=== PATIENT | male | born 1940 | race Caucasian/White ===

== ENCOUNTER → 2025-03-17 | Outpatient (CLI) | payer MEDICARE, OTHER, SELFPAY ==
[2025-03-17 15:53] LABS: Basophils # (Auto) 0.0 Thou/mm3 (0.0-0.2); Basophils % (Auto) 0 % (0-2.5); Eosinophils # (Auto) 0.1 Thou/mm3 (0.0-0.5); Eosinophils % (Auto) 1 % (0-10); Hematocrit 31.8 % (41.0-53.0); Hemoglobin 10.9 g/dL (13.5-16.0); Immature Granulocytes Auto 0.03 Thou/mm3 (0.00-0.00); Lymphocytes # (Auto) 1.2 Thou/mm3 (1.0-4.8); Lymphocytes % (Auto) 18 % (10-50); Mean Corpuscular HGB Conc 34.3 g/dl (31.0-37.0); Mean Corpuscular Hemoglobin 33.9 pg (25.0-35.0); Mean Corpuscular Volume 99 fL (80-100); Monocytes # (Auto) 0.6 Thou/mm3 (0.0-0.8); Monocytes % (Auto) 8 % (0-12); Neutrophils # (Auto) 5.0 Thou/mm3 (1.8-7.7); Neutrophils % (Auto) 72 % (37-80); Nucleated Red Blood Cell # 0.00 Thou/mm3 (0.00-0.00); Nucleated Red Blood Cell % 0 /100 WBC (0); Platelet Count 242 Thou/mm3 (140-440); RDW Standard Deviation 45.8 fL (35.1-43.9); Red Blood Count 3.22 Miln/mm3 (4.50-5.90); White Blood Count 6.9 Thou/mm3 (3.8-10.6)
[2025-03-17 16:09] LABS: Glucose Estimated Average 108 mg/dL (80-131); Hemoglobin A1C 5.4 % Hgb (4.8-6.0); Prostate Specific Antigen < 0.10 ng/mL (0-4.00)
[2025-03-17 16:10] LABS: Parathyroid Hormone Intact 67.3 pg/ml (18.5-88.0)
[2025-03-17 16:15] LABS: Vitamin B12 895 pg/mL (211-911); Vitamin D 25 Hydroxy Total 60.0 ng/mL (7.3-40.2)
[2025-03-17 16:28] LABS: Alanine Aminotransferase 10 U/L (10-49); Albumin, Serum 3.9 gm/dL (3.4-4.8); Albumin/Globulin Ratio 1.0 (1.2-2.2); Alkaline Phosphatase 78 U/L (46-116); Anion Gap 5 (7-16); Aspartate Amino Transferase 18 U/L (0-34); BUN/Creatinine Ratio 25 Ratio (12-20); Bilirubin,Total 0.3 mg/dL (0.3-1.2); Blood Urea Nitrogen 48 mg/dL (9-23); Calcium 8.5 mg/dL (8.3-10.6); Calcium (Corrected) 8.6 mg/dL (8.5-10.1); Carbon Dioxide 24.8 mMol/L (20.0-31.0); Cardiac Risk Estimate 3.6 RATIO (4.0-6.7); Chloride 112 mMol/L (98-107); Cholesterol 146 mg/dL (132-200); Creatinine (Component) 1.9 mg/dL (0.6-1.3); Globulin 3.9 gm/dL (2.3-3.5); Glucose 89 mg/dL (74-106); HDL Cholesterol 41 mg/dL (40-60); LDL Cholesterol,Calculated 86 mg/dL (0-130); Osmolality,Calculated 294 (275-295); Potassium 4.3 mMol/L (3.4-5.1); Sodium 142 mMol/L (136-145); Thyroid Stimulating Hormone 3.99 uIU/mL (0.55-4.78); Total Protein 7.8 gm/dL (5.7-8.2); Triglycerides 95 mg/dL (30-150); Uric Acid 7.0 mg/dL (3.7-9.2); eGFR 34 See Note
== END | disposition home or self-care (01) ==
LOC: COPL 13:46
PROVIDERS: PCP Internal Medicine; Referring Provider Internal Medicine; Visit Provider Internal Medicine
DX: I12.9 Hypertensive chronic kidney disease with stage 1 through stage 4 chronic kidney disease, or unspecified chronic kidney disease (principal); N18.30 Chronic kidney disease, stage 3 unspecified; E78.5 Hyperlipidemia, unspecified; D51.9 Vitamin B12 deficiency anemia, unspecified; E55.9 Vitamin D deficiency, unspecified; Z85.46 Personal history of malignant neoplasm of prostate
CPT/HCPCS: 36415; 80053; 80061; 81001; 82043; 82306; 82570; 82607; 83036; 83970; 84153; 84443; 84550; 85025

== ENCOUNTER 2025-04-08 10:58 | Emergency (ER) | payer OTHER, SELFPAY ==
[2025-04-08 10:59] VITALS: BMI 20.9
[2025-04-08 11:19] VITALS: BP 146/66; PULSE 94; RESP 18; TEMP 36.5; O2SAT 93
--- NOTE | 2025-04-08 11:26 | XR_ITS ---
Examination: CT cervical spine without contrast 2-D sagittal reconstructions 2-D coronal reconstructions 3-D reconstructions. Exam date and time: April 08, 2025, 1135 hours INDICATIONS: Ground-level fall today with injury of the neck, neck pain CTDI:vol (mGy) 14 DLP: (mGycm) 323 Technique: Multiple 2 mm axial sections of the cervical spine have been obtained. The coronal and sagittal reconstructions have been obtained. 3-D reconstructions have been obtained. Low dose protocols were performed. One or more of the following dose reduction techniques were used; automated exposure control, adjustment of the mA and/or KV according to patient size, use of iterative reconstruction technique. Findings: Axial sections demonstrate intact base of the skull. C1 exhibit satisfactory relationship to the odontoid. No acute cervical vertebral body fracture seen. Alignment posterior spinous processes satisfactory. Chronic wedging T3 Impression: No acute cervical fracture.
--- NOTE | 2025-04-08 11:26 | XR_ITS ---
Examination: Shoulder, right, 3 views Technique: Shoulder AP internal rotation, AP external rotation, Y view shoulder, 3 views Exam date and time : 2024, 1149 hours INDICATION: Patient fell today with injury to the right shoulder, right shoulder pain. FINDINGS: No shoulder fracture or dislocation Significant narrowing glenohumeral joint Severe osteopenia IMPRESSION: No acute fracture
--- NOTE | 2025-04-08 11:26 | XR_ITS ---
EXAMINATION: PA chest single view TECHNIQUE: Upright PA chest single view Date and time: April 08, 2025, 1145 hours INDICATIONS: Patient fell today with injury to the chest, chest pain FINDINGS: Normal heart size Accentuation of bronchovascular markings. No pneumothorax Clavicles ribs appear intact IMPRESSION: No pneumothorax pulmonary contusion or hemothorax
--- NOTE | 2025-04-08 11:26 | XR_ITS ---
Examination: Hand, right 3 views Technique: Hand AP, oblique, lateral 3 views Date and time of exam: April 08, 2025, 11:36 a.m. INDICATION: Patient fell today with injury to the hand, hand pain. FINDINGS: No acute fracture No dislocation No foreign body Small old bone density dorsal to the carpal bones CT IMPRESSION: No acute fracture
--- NOTE | 2025-04-08 11:26 | EKG_ITS ---
[facility] Test Date: 2025-04-08 Pat Name: SOFIYA HERRON Department: Room: - Gender: Male Supervisor [employer] Department: : 1940 Requested By: Otoniel Rees Order Number: [id number] Reading MD: Otoniel Rees Measurements Intervals [place] Rate: 79 P: 51 PA: 204 QRS: 75 QRSD: 96 T: -8 QT: 354 QTc: 407 Interpretive Statements SINUS RHYTHM WITH OCCASIONAL VENTRICULAR PREMATURE COMPLEXES MODERATE ST DEPRESSION [0.05+ mV ST DEPRESSION] ABNORMAL QRS-T ANGLE [QRS-T AXIS DIFFERENCE > 60] No previous ECG available for comparison /store/S0/[id number].pdf
--- NOTE | 2025-04-08 11:26 | XR_ITS ---
Examination: Wrist, right 3 views Technique: Wrist AP, oblique, lateral 3 views Date and time of exam: 2024, 1136 hours INDICATIONS: Patient fell today with injury to the wrist, wrist pain. FINDINGS: Prominent osteopenia No acute fracture Small old bone density dorsal to the carpal bones IMPRESSION: No acute fracture
--- NOTE | 2025-04-08 11:26 | XR_ITS ---
Examination: CT brain head without contrast. 2-D sagittal coronal reconstructions Date and time of exam: April 08, 2025, 1143 hours INDICATIONS: Ground-level fall today with injury of the head, head pain CTDI: vol (mGy): 48.4 DLP: (mGycm): 948 Technique: Multiple CT axial sections of the brain have been obtained, 5 mm slice thickness. Contrast has not been administered. 2-D sagittal, coronal reconstructions have been obtained Low dose protocols were performed. One or more of the following dose reduction techniques were used; automated exposure control, adjustment of the mA and/or KV according to patient size, use of iterative reconstruction technique. Findings: No significant ventricular enlargement. Calcified mass right sphenoid ridge, 11 x 10 x 12 mm, axial image 27, coronal image 17 Intra-axial or extra-axial hemorrhage density is not seen. No mass effect or midline shift Basal cisterns are not remarkable. Fourth ventricle is midline. Cranial vault intact. 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
--- NOTE | 2025-04-08 11:27 | EDRME_ITS ---
Rapid Medical Screening Exam [facility] Arrival date/time: 04/08/25 10:58 84-year-old male with a history of COPD presents to the emergency room with a chief complaint of tenderness to his shoulder right wrist and right hand after a ground-level fall that occurred yesterday. Patient states he felt dizzy and lightheaded and fell to the ground I have greeted and performed a focused initial assessment of this patient. A comprehensive ED assessment and evaluation of the patient, analysis of all test results, and completion of the medical decision making process will be conducted by additional ED providers. Chief Complaint: Fall Time Seen by Provider: 04/08/25 11:11 Vital signs: Vital Signs Temperature 97.7 F 04/08/25 11:19 Pulse Rate 94 04/08/25 11:19 Respiratory Rate 18 04/08/25 11:19 Blood Pressure 146/66 H 04/08/25 11:19 Pulse Oximetry (%) 93 L 04/08/25 11:19 Oxygen Delivery Method Nasal Cannula 04/08/25 11:19 Oxygen Flow Rate 3 04/08/25 11:19 Vital signs reviewed by provider: Yes Exam: GCS of 15 alert and oriented x 3, hard of hearing Clear bilateral lung sounds Strong and regular rhythm S1 and S2 Clinical Impression: Anemia/orthostatic hypotension
[2025-04-08 13:28] LABS: Basophils # (Auto) 0.0 Thou/mm3 (0.0-0.2); Basophils % (Auto) 0 % (0-2.5); Eosinophils # (Auto) 0.0 Thou/mm3 (0.0-0.5); Eosinophils % (Auto) 0 % (0-10); Hematocrit 30.8 % (41.0-53.0); Hemoglobin 10.7 g/dL (13.5-16.0); Immature Granulocytes Auto 0.04 Thou/mm3 (0.00-0.00); Lymphocytes # (Auto) 0.8 Thou/mm3 (1.0-4.8); Lymphocytes % (Auto) 8 % (10-50); Mean Corpuscular HGB Conc 34.7 g/dl (31.0-37.0); Mean Corpuscular Hemoglobin 34.6 pg (25.0-35.0); Mean Corpuscular Volume 100 fL (80-100); Monocytes # (Auto) 0.7 Thou/mm3 (0.0-0.8); Monocytes % (Auto) 7 % (0-12); Neutrophils # (Auto) 8.1 Thou/mm3 (1.8-7.7); Neutrophils % (Auto) 84 % (37-80); Nucleated Red Blood Cell # 0.00 Thou/mm3 (0.00-0.00); Nucleated Red Blood Cell % 0 /100 WBC (0); Platelet Count 238 Thou/mm3 (140-440); RDW Standard Deviation 46.5 fL (35.1-43.9); Red Blood Count 3.09 Miln/mm3 (4.50-5.90); White Blood Count 9.7 Thou/mm3 (3.8-10.6)
[2025-04-08 13:44] LABS: INR 1.0 (0.9-1.3); Partial Thromboplastin Time 25.8 Seconds (22.0-36.0); Prothrombin Time 10.9 Seconds (9.0-12.2)
[2025-04-08 13:51] LABS: Alanine Aminotransferase 11 U/L (10-49); Albumin, Serum 4.0 gm/dL (3.4-4.8); Albumin/Globulin Ratio 0.9 (1.2-2.2); Alkaline Phosphatase 81 U/L (46-116); Anion Gap 6 (7-16); Aspartate Amino Transferase 20 U/L (0-34); BUN/Creatinine Ratio 24 Ratio (12-20); Bilirubin,Total 0.4 mg/dL (0.3-1.2); Blood Urea Nitrogen 41 mg/dL (9-23); Calcium 9.0 mg/dL (8.3-10.6); Calcium (Corrected) 9.0 mg/dL (8.5-10.1); Carbon Dioxide 23.0 mMol/L (20.0-31.0); Chloride 111 mMol/L (98-107); Creatinine (Component) 1.7 mg/dL (0.6-1.3); Estimated Creatinine Clearance 26.5 mL/min (>60); Free T4 (Free Thyroxine) 1.01 ng/dL (0.89-1.76); Globulin 4.6 gm/dL (2.3-3.5); Glucose 100 mg/dL (74-106); Magnesium 1.9 mg/dL (1.6-2.6); Osmolality,Calculated 289 (275-295); Potassium 4.3 mMol/L (3.4-5.1); Sodium 140 mMol/L (136-145); Thyroid Stimulating Hormone 3.87 uIU/mL (0.55-4.78); Total Protein 8.6 gm/dL (5.7-8.2); Troponin I < 0.020 ng/mL (0.0-0.045); eGFR 39 See Note
--- NOTE | 2025-04-08 14:00 | EDNOTE_ITS ---
ED General RME/HPI General Chief complaint: Fall Stated complaint: FALL S/P DIZZINESS; C/O R ARM PAIN THROUGHOUT Time Seen by Provider: 04/08/25 11:11 Arrival date/time: 04/08/25 10:58 CC: Right shoulder elbow and wrist as well as index finger pain HPI patient fell last night, after losing balance. The patient denies loss of consciousness or altered level of consciousness. No OTC medicines taken. Pain is somewhat decreased but overall unchanged since the fall yesterday. Patient is not on blood thinners RME / HPI RME / HPI narrative: 04/08/25 10:58 84-year-old male with a history of COPD presents to the emergency room with a chief complaint of tenderness to his shoulder right wrist and right hand after a ground-level fall that occurred yesterday. Patient states he felt dizzy and lightheaded and fell to the ground I have greeted and performed a focused initial assessment of this patient. A comprehensive ED assessment and evaluation of the patient, analysis of all test results, and completion of the medical decision making process will be conducted by additional ED providers. Exam: GCS of 15 alert and oriented x 3, hard of hearing Clear bilateral lung sounds Strong and regular rhythm S1 and S2 Impression: Anemia/orthostatic hypotension Related Data Allergies Allergy/AdvReac Type Severity Reaction Status Date / Time No Known Allergies Allergy Verified 04/08/25 11:03 Review of Systems Review of Systems Narrative Review of Systems: GEN: No fever, no chills, no weight loss EYES: No discharge, no visual changes, no pain HEENT: No ear pain, no congestion, no sore throat PULM: No shortness of breath, no cough, no congestion CV: No chest pain, no dyspnea on exertion, no palpitations GI: No nausea, no vomiting, no diarrhea, no pain, no constipation : No frequency, no urgency, no dysuria MUSC/SKEL: No joint pain, no back pain SKIN: No rash PSYCH: No hallucinations, no depression HEME/LYMPH: No easy bleeding or bruising tendencies NEURO: No weakness, no headache ED Exam Narrative Physical exam: [General: Thin, appears not in any acute distress Head normocephalic HEENT: Within acceptable limits Neck is supple nontender Chest equal chest rise nontender to palpation Respiratory: Clear to auscultation no wheezes crackles or rubs CV: Rate rhythm is regular no murmurs rubs or clicks Abdomen is soft nontender no masses positive bowel sounds all 4 quadrants Back: No CVA tenderness no spinous process tenderness from cervical spine thoracic and lumbar spine Skin: Intact no petechiae rash induration ulceration or crepitus Extremities: Decreased range of motion of the right arm secondary to pain in the shoulder and elbow but does have range of motion both passive and active. There is mild edema to the index finger of the right hand but full range of motion with a cap refill less than 2 seconds. Moving all other extremities poorly against resistance cap refill less than 2 seconds neurosensory intact. Neuro: Awake alert oriented x2, person and place, Glascow coma 15 no focal deficits] Course Quality Measures none Orders Category Date Time Status EKG (ED ONLY) *Do not use* NOW Care 04/08/25 11:[address] cervical spine wo con Stat Exams 04/08/25 11:[address] head/brain wo con Stat Exams 04/08/25 11:26 Completed EKG (ED Only) Stat Exams 04/08/25 11:26 Draft XR chest 1V portable Stat Exams 04/08/25 11:26 Completed XR hand comp RT min 3V Stat Exams 04/08/25 11:26 Completed XR shoulder RT min 2V Stat Exams 04/08/25 11:26 Completed XR wrist comp RT min 3V Stat Exams 04/08/25 11:26 Completed B-Type Natriuretic Peptide Stat Lab 04/08/25 13:12 Received CBC Stat Lab 04/08/25 13:12 Completed Comprehensive Metabolic Panel Stat Lab 04/08/25 13:12 Completed Drug Screen,Urine Stat Lab 04/08/25 11:26 Ordered Free T4 (Free Thyroxine) Stat Lab 04/08/25 13:12 Completed Magnesium Stat Lab 04/08/25 13:12 Completed Partial Thromboplastin Time Stat Lab 04/08/25 13:12 Completed Prothrombin Time with INR Stat Lab 04/08/25 13:12 Completed TSH [Thyroid Stimulating Hormone] Stat Lab 04/08/25 13:12 Completed Troponin I Stat Lab 04/08/25 13:12 Completed Type and Screen Stat Lab 04/08/25 13:12 Results Urinalysis, C/S if Indicated Stat Lab 04/08/25 11:26 Ordered Vital Signs Vital signs: Vital Signs Temperature 97.7 F 04/08/25 11:19 Pulse Rate 94 04/08/25 11:19 Respiratory Rate 18 04/08/25 11:19 Blood Pressure 146/66 H 04/08/25 11:19 Pulse Oximetry (%) 93 L 04/08/25 11:19 Oxygen Delivery Method Nasal Cannula 04/08/25 11:19 Oxygen Flow Rate 3 04/08/25 11:19 Discharge Plan Plan Patient Disposition: HOME (Self Care) Patient condition on transfer: Stable Prescriptions/Referrals Referrals: Nevaeh Bates MD [Primary Care Provider, Nephrology] - In 1 week Problem List Clinical Impression: Fall, Contusion of right shoulder, Arm contusion, Contusion of index finger Patient/Caregiver Discharge Instructions Education Materials: Bruises (Contusions) Additional Instructions: Tylenol for temporary pain relief ice or heat as necessary for soreness. Be very careful with ambulating make sure he uses his walker all the time. Follow- up with your primary care doctor if there is a worsening of symptoms return the emergency room medially for further evaluation. Print Language: Georgian Stand Alone Forms: [email or web address] Info., Work/School Release, Patient Portal Info Letter PA/[place] Supervising Physician PA/[place] Supervising Physician: Timbo Fontenot ENP [facility] Clinical Information Provided by: patient and family Medical Records reviewed [facility] Meds/Rx considered, not ordered None Labs/Rad/Tests considered, not ordered None Chronic Illness/Social Conditions which may negatively complicate care or outcome(s)-explain: None or not appl icable Labs Labs: interpreted by ca Lab(s) Interpretation(s): CBC shows no leukocytosis H&H of 10.7 and 30.8 respectively platelets of 238. Coags within acceptable limits CMP shows a BUN of 41 creatinine 1.7 note there are no old laboratory findings to compare to No other electrolyte imbalances renal impairment transaminitis or T. bili elevation. Troponin and BNP within acceptable limits. TSH and free T4 within acceptable limits Imaging Imaging Interpretation(s): Right wrist shoulder and hand x-ray negative. Chest x-ray is unremarkable. CT of the head is negative. CT cervical spine is negative. Medication Administration(s) none Diagnosis Differential Diagnosis ED Complaint MDM: Closed injury neck fracture shoulder fracture
[2025-04-08 14:20] LABS: B-Type Natriuretic Peptide 84 pg/mL (0-100)
== END 2025-04-08 14:20 | disposition home or self-care (01) ==
PROVIDERS: Nurse Practitioner Family; Emergency Provider Family Medicine; PCP Internal Medicine
DX: S40.011A Contusion of right shoulder, initial encounter (principal); S60.211A Contusion of right wrist, initial encounter; S60.021A Contusion of right index finger without damage to nail, initial encounter; S19.9XXA Unspecified injury of neck, initial encounter; S09.90XA Unspecified injury of head, initial encounter; S29.9XXA Unspecified injury of thorax, initial encounter; W01.0XXA Fall on same level from slipping, tripping and stumbling without subsequent striking against object, initial encounter
CPT/HCPCS: 36415; 70450; 71045; 72125; 73030; 73110; 73130; 80053; 80307; 81001; 83735; 83880; 84439; 84443; 84484; 85025; 85610; 85730; 86850; 86900; 86901; 93005; 99283